=== PATIENT | male | born 1980 | race African-American/Black ===

== ENCOUNTER 2025-07-13 12:57 | Emergency (ER) | payer OTHER ==
[~2025-07-13] VITALS: Ht 170.2 cm; Wt 79.0 kg
[2025-07-13 13:15] VITALS: TEMP 98.6
[2025-07-13] MEDS: KETOROLAC TROMETHAMINE 30 MG/ML VIAL IM ONE (13:50)
[2025-07-13] MEDS: ACETAMINOPHEN 500 MG TABLET PO ONE (13:50)
[2025-07-13] MEDS: LIDOCAINE 1% 10 ML VIAL ID ONE (14:25)
[2025-07-13 15:22] VITALS: BP 130/78; PULSE 60; RESP 18; O2SAT 99
== END 2025-07-13 15:24 | disposition home or self-care (01) ==
LOC: EMS 12:57 → EDSEX 12:57 → EMS 15:24
DX: S63.287A Dislocation of proximal interphalangeal joint of left little finger, initial encounter (principal); X58.XXXA Exposure to other specified factors, initial encounter; Y93.67 Activity, basketball; Y92.89 Other specified places as the place of occurrence of the external cause; Y99.8 Other external cause status
CPT/HCPCS: 99284; 26770; 73140; 96372; J1885; J3490